=== PATIENT | female | born 1965 | race Caucasian/White ===

== ENCOUNTER 2017-02-02 14:20 | Emergency (ER) | payer MEDICAID ==
[~2017-02-02] VITALS: Ht 170.2 cm; Wt 77.4 kg
[~2017-02-02 14:20] MED LIST: METH750T87 PO; PREG150C PO
[2017-02-02] MEDS ORDERED: ASPIRIN 81 MG TABLET CHEW PO ONE (16:00)
[2017-02-02 16:06] LABS: BLOOD UREA NITROGEN 9 mg/dL (7-18)
[2017-02-02 16:08] LABS: HEMATOCRIT 38.1 % (34.6-47.8); HEMOGLOBIN 12.9 g/dL (11.7-16.4); WHITE BLOOD COUNT 9.8 x10^3/uL (3.4-10)
[2017-02-02 16:10] LABS: IS PT STATUS REG ER OR PRE ER? YES
[2017-02-02] MEDS ORDERED: SODIUM CHLORIDE FLUSH 10ML SYR IVF ONE (16:30)
[2017-02-02 17:15] VITALS: BP 117/66
== END 2017-02-02 17:25 | disposition home or self-care (01) ==
LOC: ED 16:41
DX: J18.1 Lobar pneumonia, unspecified organism (principal); J44.9 Chronic obstructive pulmonary disease, unspecified; Z79.82 Long term (current) use of aspirin
CPT/HCPCS: 36415; 71020; 80048; 82040; 84484; 85025; 93005; 99285

== ENCOUNTER 2018-07-19 12:28 | Emergency (ER) | payer MEDICAID ==
[~2018-07-19] VITALS: Ht 170.2 cm; Wt 70.5 kg
[2018-07-19 12:29] VITALS: BP 130/74
== END 2018-07-19 13:39 | disposition home or self-care (01) ==
LOC: ED 13:00
DX: M54.41 Lumbago with sciatica, right side (principal); G89.29 Other chronic pain; G43.909 Migraine, unspecified, not intractable, without status migrainosus
CPT/HCPCS: 72110; 99283